=== PATIENT | female | born 1955 | race Caucasian/White ===

== ENCOUNTER 2016-03-04 23:07 | Emergency (ER) | payer SELFPAY ==
--- NOTE | 2016-03-05 00:02 | ERRECORD ---
[facility] EMERGENCY RECORD PAST MEDICAL HISTORY MEDICAL HISTORY: Flu vaccine not up to date, Tetanus not up to date, Pneumococcal vaccine not up to date, Past medical history includes history of diabetes, Type II, Past medical history includes history of hyperlipidemia, high cholesterol, currently being treated, Past medical history includes history of hypertension, which has been treated, Patient is compliant, Past medical history includes history of obesity, renal disease. insufficiency. (23:21 LHAL) FEMALE SURGICAL HISTORY: Surgical history of section, Notes: X6. (23:22 LHAL) PSYCHIATRIC HISTORY: Psychiatric history includes, anxiety. (23:22 LHAL) SOCIAL HISTORY: Patient denies alcohol use, Patient denies drug use, Patient has no smoking history. (23:22 LHAL) KNOWN ALLERGIES NKDA CURRENT MEDICATIONS metFORMIN: TABLET : Strength - 500 mg : ORAL Patient Dose: 500 mg Oral once a day. (23:22 LHAL) Bactrim DS: TABLET : Strength - 800 mg-160 mg : ORAL Patient Dose: ONE tab(s) Oral once a day.PROPHYLACTIC FOR SKIN CONDITION. (23:23 LHAL) Effexor XR: CAPSULE, EXT RELEASE 24 HR : Strength - 150 mg : ORAL Patient Dose: 150 mg Oral once a day. (23:24 LHAL) losartan-hydrochlorothiazide: TABLET : Strength - 50 mg-12.5 mg : ORAL Patient Dose: ONE tab(s) Oral once a day. (23:24 LHAL) Vitamin D3: TABLET : Strength - 5,000 unit : ORAL Patient Dose: ONE cap(s) Oral once a day. (23:25 LHAL) lovastatin: TABLET : Strength - 20 mg : ORAL Patient Dose: 20 mg Oral once a day (at bedtime). (23:25 LHAL) VITAL SIGNS (23:09 LHAL) VITAL SIGNS: BP: 130/61 (Sitting), Pulse: 77 (Regular), Resp: 16 (Non-Labored), Temp: 99.2 (Oral), Pain: 4 (Constant), O2 sat: 97 on Room Air, Time: 03/04/2016 23:09. PROBLEM LIST No recorded problems &a-1R&a+25V*p+0X*[id number]*c202B*c15G*c2P*p-0X&a-25V&a+1R Name: Lisa Fuentes DOB: 1955 F60 MedRec: [id number] AcctNum: [id number] Prepared: TueMar 04, 2016 23:51 by Interface Page 1 of 2 pMD [facility] EMERGENCY RECORD DIAGNOSIS (23:40 BLEW) FINAL: PRIMARY: Sciatica - Left. PRESCRIPTION (23:41 BLEW) Motrin: TABLET : 800 mg : ORAL : Quantity: 1 Unit: tab(s) Route: ORAL Schedule: 3 times a day Dispense: 24 May substitute. Refills: No Refills . NOTES: No Refills. Tylenol-Codeine #3: TABLET : 300 mg-30 mg : ORAL : Quantity: 1-2 Unit: tab(s) Route: ORAL Schedule: every 4 to 6 hours Dispense: 16 May substitute. Refills: No Refills . NOTES: ^s=No Refills No Refills. DISPOSITION PATIENT: Disposition Type: Discharge, Disposition: *Discharge Home. (23:40 BLEW) Patient left the department. (23:46 LHAL) Doe: BLEW=DO Amos Brandon LHAL=ZACARIAS Ba, Tonia &a-1R&a+25V*p+0X*[id number]*c202B*c15G*c2P*p-0X&a-25V&a+1R Name: Lisa Fuentes : 1955 F60 MedRec: [id number] AcctNum: [id number] Prepared: TueMar 04, 2016 23:51 by Interface Page 2 of 2 pMD MTDD
--- NOTE | 2016-03-05 00:10 | PICIS ---
[facility] EMERGENCY RECORD TRIAGE (23:19 LHAL) TRIAGE NOTES: LEFT LEG PAIN SINCE DECEMBER. (23:19 LHAL) PATIENT: NAME: Lisa Fuentes, AGE: 60, GENDER: female, : Tue1955, TIME OF GREET: TueMar 04, 2016 23:07, PREFERRED LANGUAGE: Angolan, ECODE BILLING MAP: [facility], SSN: [id number], Zip Code: [id number], KG WEIGHT: 90.72, PHONE: , , , PERSON ID: [id number], PCP: IKER MCELROY. (23:19 LHAL) COMPLAINT: LT LEG INJURY. (23:19 LHAL) ADMISSION: URGENCY: 4 Non Urgent, ADMISSION SOURCE: Home, TRANSPORT: CAR, BED: ER -02. (23:19 LHAL) ASSESSMENT: Assessment: LEFT LEG PAIN, EVERY NIGHT SINCE DECEMBER AFTER MOVING FURNITURE AND HAVING A CHEST FALL ON UPPER LEFT THIGH, Symptoms began DECEMBER 2015. (23:21 LHAL) PAIN: Patient complains of pain described as, aching, on a scale 0-10 patient rates pain as 4, Location UPPER LEFT THIGH, GOES DOWN LEFT LEG, DENIES BACK PAIN, Pain is constant, Aggravating factors:, Pain exacerbated by movement, No relieving factors. (23:21 LHAL) IMMUNIZATIONS: Flu vaccine not up to date, Tetanus not up to date, Pneumococcal vaccine not up to date, Notes: TOOK MOTRIN TODAY, DOESN'T HELP. (23:21 LHAL) SIRS SCORING: Heart Rate 55-109 (0), Temp range 96.8-101.1 (0), respiratory rate 12-24 (0), Mental Status altered: no (0), Infection or Suspected Infection: No. (23:21 LHAL) TRIAGE SCREENING: Patient denies suicidal ideation, Patient denies presence of domestic violence. (23:21 LHAL) LMP: LMP: Menopause. (23:21 LHAL) PROVIDERS: TRIAGE NURSE: Tonia Ba RN. (23:19 LHAL) VITAL SIGNS: BP 130/61, (Sitting), Pulse 77, (Regular), Resp 16, (Non-Labored), Temp 99.2, (Oral), Pain 4, (Constant), O2 Sat 97, on Room Air, Time 03/04/2016 23:09. (23:09 LHAL) KNOWN ALLERGIES NKDA CURRENT MEDICATIONS metFORMIN: TABLET : Strength - 500 mg : ORAL Patient Dose: 500 mg Oral once a day. (23:22 LHAL) Bactrim DS: TABLET : Strength - 800 mg-160 mg : ORAL Patient Dose: ONE tab(s) Oral once a day.PROPHYLACTIC FOR SKIN CONDITION. (23:23 LHAL) Effexor XR: CAPSULE, EXT RELEASE 24 HR : Strength - 150 mg : ORAL Patient Dose: 150 mg Oral once a day. (23:24 LHAL) &a-1R&a+25V*p+0X*x2364O*c202B*c15G*c2P*p-0X&a-25V&a+1R Name: Lisa Fuentes : 1955 F60 MedRec: [id number] AcctNum: [id number] Prepared: Aissatou Mar 04, 2016 23:57 by Interface Page 1 of 4 pMD [facility] EMERGENCY RECORD losartan-hydrochlorothiazide: TABLET : Strength - 50 mg-12.5 mg : ORAL Patient Dose: ONE tab(s) Oral once a day. (23:24 LHAL) Vitamin D3: TABLET : Strength - 5,000 unit : ORAL Patient Dose: ONE cap(s) Oral once a day. (23:25 LHAL) lovastatin: TABLET : Strength - 20 mg : ORAL Patient Dose: 20 mg Oral once a day (at bedtime). (23:25 LHAL) VITAL SIGNS (23:09 LHAL) VITAL SIGNS: BP: 130/61 (Sitting), Pulse: 77 (Regular), Resp: 16 (Non-Labored), Temp: 99.2 (Oral), Pain: 4 (Constant), O2 sat: 97 on Room Air, Time: 03/04/2016 23:09. NURSING ASSESSMENT: EXTREMITY LOWER (23:19 LHAL) CONSTITUTIONAL: Patient arrives ambulatory, Gait steady, History obtained from patient, Patient appears, anxious, obese, uncomfortable, Patient cooperative, Patient alert, Oriented to person, place and time, Skin warm, Skin dry, Skin normal in color, Mucous membranes pink, Mucous membranes moist, Patient is well-groomed, Patient complains of LEFT LEG PAIN SINCE DECEMBER 2015. PAIN: aching pain, to the left upper leg, Pain radiates, PAIN RADIATES DOWN LEFT LEG, DENIES LOWER BACK PAIN, Onset of pain DECEMBER 2015, constant, on a scale 0-10 patient rates pain as 4, PT TAKING MOTRIN FOR PAIN, HAS TRIED TRAMADOL BEFORE, Pain exacerbated by, Pain exacerbated by, TOOK MOTRIN TODAY FOR PAIN NO RELIEF PT STATES SHE NEEDS PAIN MEDS TO SLEEP. LEFT LOWER EXTREMITY: Left lower extremity assessment findings include capillary refill less than 2 seconds, Skin color normal, Skin temperature warm, Distal sensation intact, Muscle tone normal, muscle strength 3, no edema present, posterior tibia pulse is +3, dorsalis pedis pulse is +3, Inspection findings include no signs of infection, Inspection findings include no signs of trauma, Inspection findings include no swelling, Notes: PT STATES SHE HAD SAME SYMPTOMS IN NOV 2014 AFTER MOVING FURNITURE PT STATES PAIN RETURNED IN DECEMBER 2015 AFTER MOVING FURNITURE, AND ALSO FELL DOWN 3 STEPS WITH A CHEST OF DRAWERS THAT FELL ON HER LEFT UPPER THIGH, HAS PAIN EVERY DAY SINCE DECEMBER, WORSE AT NIGHT, CAN'T SLEEP AMBULATES WITH SLOW STEADY GAIT, STATES SHE HAS TO STAY ACTIVE DURING DAY SO PAIN IS WORSE AT NIGHT AND CAN'T SLEEP SYMPTOMS ARE NO WORSE TODAY THEN THEY HAVE BEEN SINCE DECEMBER. RIGHT LOWER EXTREMITY: Right lower extremity assessment findings include capillary refill less than 2 seconds, Skin color normal, Skin temperature warm, Distal sensation intact, Muscle tone normal, muscle strength 3, no edema present, posterior tibia pulse is +3, dorsalis &a-1R&a+25V*p+0X*[id number]*c202B*c15G*c2P*p-0X&a-25V&a+1R Name: Lisa Fuentes : 1955 F60 MedRec: [id number] AcctNum: [id number] Prepared: Aissatou Mar 04, 2016 23:57 by Interface Page 2 of 4 pMD [facility] EMERGENCY RECORD pedis pulse is +3, Inspection findings include no signs of infection, Inspection findings include no signs of trauma, Inspection findings include no swelling. SAFETY: Side rails up, Cart/Stretcher in lowest position, Call light within reach, Hospital ID band on, Notes: PT DROVE SELF HERE. NURSING PROCEDURE: DISCHARGE NOTE (23:43 LHAL) DISCHARGE: Patient discharged to home, ambulating without assistance, driving self, unaccompanied, Summary of Care printed/ provided, Patient requested and was provided an electronic copy of Discharge Instructions, Transition record given to patient, Discharge instructions given to patient, Simple or moderate discharge teaching performed, by King BA RN, Prescriptions given and instructions on side effects given, Name of prescription(s) given: MOTRIN , TYLENOL WITH CODEINE, Medication reconciliation form given, and reviewed with patient, Above person(s) verbalized understanding of discharge instructions and follow-up care, Notes: DC HOME STABLE. BELONGINGS: Belongings and valuables with patient upon arrival to the Emergency Department include:. NURSING PROCEDURE: NURSE NOTES (23:26 LHAL) NURSES NOTES: Patient examined by physician. PAST MEDICAL HISTORY MEDICAL HISTORY: Flu vaccine not up to date, Tetanus not up to date, Pneumococcal vaccine not up to date, Past medical history includes history of diabetes, Type II, Past medical history includes history of hyperlipidemia, high cholesterol, currently being treated, Past medical history includes history of hypertension, which has been treated, Patient is compliant, Past medical history includes history of obesity, renal disease. insufficiency. (23:21 LHAL) FEMALE SURGICAL HISTORY: Surgical history of section, Notes: X6. (23:22 LHAL) PSYCHIATRIC HISTORY: Psychiatric history includes, anxiety. (23:22 LHAL) SOCIAL HISTORY: Patient denies alcohol use, Patient denies drug use, Patient has no smoking history. (23:22 LHAL) EVENTS TRANSFER: Triage to Emergency Emergency Room -02. (TueMar 04, 2016 23:19 LHAL) Removed from Emergency Emergency Room -02. (23:46 LHAL) PROBLEM LIST No recorded problems DIAGNOSIS (23:40 BLEW) &a-1R&a+25V*p+0X*i9187J*c202B*c15G*c2P*p-0X&a-25V&a+1R Name: Lisa Fuentes : 1955 F60 MedRec: [id number] AcctNum: [id number] Prepared: TueMar 04, 2016 23:57 by Interface Page 3 of 4 pMD [facility] EMERGENCY RECORD FINAL: PRIMARY: Sciatica - Left. DISPOSITION PATIENT: Disposition Type: Discharge, Disposition: *Discharge Home. (23:40 BLEW) Patient left the department. (23:46 LHAL) INSTRUCTION (23:42 BLEW) DISCHARGE: SCIATICA. FOLLOWUP: Follow up with Primary Care Physician in 5 days. SPECIAL: You should follow up with Dr. Leslie for further testing such as an MRI if your symptoms are not improving. Call your doctor or return with worsening or worrisome symptoms. PRESCRIPTION (23:41 BLEW) Motrin: TABLET : 800 mg : ORAL : Quantity: 1 Unit: tab(s) Route: ORAL Schedule: 3 times a day Dispense: 24 May substitute. Refills: No Refills . NOTES: No Refills. Tylenol-Codeine #3: TABLET : 300 mg-30 mg : ORAL : Quantity: 1-2 Unit: tab(s) Route: ORAL Schedule: every 4 to 6 hours Dispense: 16 May substitute. Refills: No Refills . NOTES: ^s=No Refills No Refills. IMAGING *SUPPLY CHARGE SHEET: Image captured from scanner. (23:42 [facility]) *DISCHARGE INSTRUCTIONS RECEIPT: Image captured from scanner. (23:44 [facility]) ADMIN (23:46 [facility]) DIGITAL SIGNATURE: ZACARIAS Ba Linda. Doe: BLEW=DO Amos Brandon LHAL=ZACARIAS Ba Linda &a-1R&a+25V*p+0X*j3109V*c202B*c15G*c2P*p-0X&a-25V&a+1R Name: Lisa Fuentes : 1955 F60 MedRec: [id number] AcctNum: [id number] Prepared: [facility] Mar 04, 2016 23:57 by Interface Page 4 of 4 pMD MTDD
== END 2016-03-04 23:44 | disposition home or self-care (01) ==
LOC: NAV ERS 23:07
DX: M54.42 Lumbago with sciatica, left side (principal); I10 Essential (primary) hypertension; E78.00 Pure hypercholesterolemia, unspecified; E11.9 Type 2 diabetes mellitus without complications; E78.5 Hyperlipidemia, unspecified; F41.9 Anxiety disorder, unspecified; E66.9 Obesity, unspecified
CPT/HCPCS: 99283

== ENCOUNTER 2017-04-21 17:50 | Emergency (ER) | payer SELFPAY ==
[2017-04-21] MEDS ORDERED: Sodium Chloride 0.9% 1,000 ML ONE (18:10)
[2017-04-21 18:34] LABS: #Basophils 0.2 thou/uL (0.0-0.2); #Eosinphils 0.2 thou/uL (0.0-0.7); #Lymphocytes 1.5 thou/uL (1.20-3.40); #Monocytes 0.8 thou/uL (0.11-0.59); %Basophils 1.9 % (0.0-1.0); %Lymphocytes 16.9 % (21.0-51.0); %Neutrophils 70.1 % (42.0-75.0); Hemoglobin 13.3 g/dL (12.0-16.0); Mean Corpuscular HGB CONC 31.8 g/dL (32.0-36.0); Mean Corpuscular Hemoglobin 28.8 pg (27.0-31.0); Mean Corpuscular Volume 90.5 fl (81.0-99.0); Mean Platelet Volume 7.3 fL (7.4-10.4); Platelet Count 260 thou/uL (130-400); RBC Distribution Width 12.2 % (11.5-14.5); Red Blood Cell (RBC) Count 4.63 mill/uL (4.20-5.40); White Blood Cell (WBC) Count 8.6 thou/uL (4.8-10.8)
[2017-04-21 18:49] LABS: ALT (SGPT) 15 U/L (8-55); AST (SGOT) 14 U/L (5-34); Albumin 3.9 g/dL (3.4-4.8); Alkaline Phosphatase 130 U/L (40-150); Anion Gap 17 mmol/L (10-20); BUN (Urea Nitrogen) 16 mg/dL (9.8-20.1); Bilirubin, Total 0.4 mg/dL (0.2-1.2); CK (CPK) 88 U/L (29-168); Calc. Creatinine Clearance 0 mL/min (70-130); Calcium 9.7 mg/dL (7.8-10.44); Carbon Dioxide 23 mmol/L (23-31); Chloride 102 mmol/L (98-107); Estimated GFR-MDRD 43; Globulin 3.6 g/dL (2.4-3.5); Glucose 110 mg/dL (80-115); Magnesium 2.1 mg/dL (1.6-2.6); Phosphorus 3.7 mg/dL (2.3-4.7); Potassium 4.1 mmol/L (3.5-5.1); Protein, Total 7.5 g/dL (6.0-8.3); Sodium 138 mmol/L (136-145)
[2017-04-21 18:50] LABS: CKMB 1.4 ng/mL (0-6.6); Troponin I Less than 0.010 ng/mL (< 0.028)
[2017-04-21] MEDS ORDERED: Cyanocobalamin 1000 MCG/ML VIAL ONE (19:05)
== END 2017-04-21 19:36 | disposition home or self-care (01) ==
LOC: NAV ERS 17:50
DX: R53.1 Weakness (principal); E11.9 Type 2 diabetes mellitus without complications; E78.5 Hyperlipidemia, unspecified; I10 Essential (primary) hypertension; E66.9 Obesity, unspecified; F41.9 Anxiety disorder, unspecified; Z79.84 Long term (current) use of oral hypoglycemic drugs; Z79.899 Other long term (current) drug therapy
CPT/HCPCS: 80053; 82550; 82553; 83735; 84100; 84484; 85025; 93005; 96360; 96372; J3420; J7050